=== PATIENT | female | born 1990 | race Two or more races ===

== ENCOUNTER 2017-06-27 08:44 | Outpatient (CLI) | payer OTHER | END 2017-06-27 15:13 | disposition home or self-care (01) | LOC: MRI 08:44 | DX: M54.5 Low back pain (principal); M25.551 Pain in right hip; M79.604 Pain in right leg | CPT/HCPCS: 72148; 73721 ==

== ENCOUNTER → 2020-06-01 17:22 | Outpatient (CLI) | payer OTHER | END | disposition home or self-care (01) | LOC: RAD 17:22 → LAB 17:22 | PROVIDERS: ATTEND Radiology Diagnostic Radiology | DX: M25.532 Pain in left wrist (principal) ==

== ENCOUNTER 2020-08-03 09:44 | Outpatient (CLI) | payer OTHER | END 2020-08-03 13:26 | disposition home or self-care (01) | LOC: OFIC 805 09:44 | PROVIDERS: ATTEND Otolaryngology | DX: J34.89 Other specified disorders of nose and nasal sinuses (principal); J34.2 Deviated nasal septum ==

== ENCOUNTER 2021-08-10 06:13 | Outpatient (CLI) | payer OTHER | END 2021-08-10 06:35 | disposition home or self-care (01) | LOC: MRI 06:13 | PROVIDERS: ATTEND Radiology Diagnostic Radiology | DX: M76.52 Patellar tendinitis, left knee (principal) | CPT/HCPCS: 73721 ==

== ENCOUNTER 2022-06-16 15:17 | Inpatient (IN) | payer OTHER ==
[~2022-06-16] VITALS: Ht 165.1 cm; Wt 77.1 kg
[2022-06-16] MEDS ORDERED: QUETIAPINE FUM400 MG PO (15:32)
[2022-06-16] MEDS ORDERED: LITHIUM CARBON300 M2 PO (15:32)
[2022-06-16] MEDS ORDERED: NASAL MIST126 ML (15:33)
[2022-06-16] MEDS ORDERED: SEROQUEL25 MG (15:33)
--- NOTE | 2022-06-16 15:34 | NUR ---
SE RECEIB PTE ALERTA Y ORIENTADA X3 CUAL REFEIR MALESTAR GENERAL DESDE Jewell. se kelsey sv y se ubivca.
--- NOTE | 2022-06-16 16:05 | NUR ---
SE LE ORIENTA A PACIENTE SOBRE LAS ORDENES MEDICAS, REFIERE ENTEDER LAS MISMAS. SE CANALIZA Y SE LE COLOCA LOS IVF'S, SE LE ANDREIA LAS MUETRAS Y SE LE ADMINSITRAN LOS MEDICAMENTOS [place] LAS ORDENES MEDICAS.
[2022-06-19] MEDS ORDERED: LAMICTAL200 MG (08:17)
[2022-06-20] MEDS ORDERED: QUETIAPINE FUMA50 MG (15:57)
[2022-06-20] MEDS ORDERED: QUETIAPINE FUM100 MG (15:58)
== END 2022-06-22 13:48 | disposition home or self-care (01) | DRG 194 ==
LOC: ER 15:17 → SURG 21:13
PROVIDERS: ADMIT Specialist; ATTEND Specialist
PROC: 8E0ZXY6 Isolation (ICD-10-PCS; principal; 2022-06-16)
PROC: 3E0F7GC Introduction of Other Therapeutic Substance into Respiratory Tract, Via Natural or Artificial Opening (ICD-10-PCS; 2022-06-16)
PROC: BW24Y0Z Computerized Tomography (CT Scan) of Chest and Abdomen using Other Contrast, Unenhanced and Enhanced (ICD-10-PCS; 2022-06-16)
DX: J18.1 Lobar pneumonia, unspecified organism (principal); F31.89 Other bipolar disorder; E86.0 Dehydration; E87.6 Hypokalemia; D64.9 Anemia, unspecified; Z20.822 Contact with and (suspected) exposure to COVID-19

== ENCOUNTER 2023-12-21 07:07 | Day surgery (SDC) | payer OTHER ==
[2023-12-14 09:52] LABS: URINE APPEARANCE Turbid; URINE BILIRRUBIN Negative (NEGATIVE); URINE BLOOD Trace; URINE COLOR Yellow; URINE GLUCOSE Negative (NEGATIVE); URINE KETONE Negative (NEGATIVE); URINE LEUKOCYTE Negative; URINE NITRATE Negative; URINE PROTEIN Negative (NEGATIVE); URINE UROBILINOGEN 0.2 E.U./dl
[2023-12-14 09:55] LABS: URINE BACTERIA 840.3 uL (0.0-1933); URINE EPITHELIAL CELLS 6.7 uL (0.0-38.8); URINE RBC 43.8 uL (0.0-20.8); URINE WBC 10.6 uL (0.0-23.2)
[2023-12-14 10:01] LABS: HEMATOCRIT 38.4 % (36.0-45.00); HEMOGLOBIN 13.4 g/dL (12.0-15.00); MEAN CELL VOLUME 92.7 fL (80.00-100.00); MEAN CORPUSCULAR HEMOGLOBIN 32.5 pg (27.00-32.0); PLATELET COUNT 309 K/uL (150-450); RED BLOOD COUNT 4.14 M/uL (4.00-6.00); RED CELL DISTRIBUTION WIDTH 12.7 % (11.5-14.5)
[2023-12-14 10:33] LABS: PARTIAL THROMBOPLASTIN TIME 29.9 SECONDS (22.0-34.0); PROTHROMBIN TIME 10.5 SECONDS (9.0-11.5)
[2023-12-14 10:38] LABS: ALBUMIN 4.2 gm/dL (3.4-5.0); CREATININE SERUM 0.6 mg/dL (0.55-1.02); GFR 113.76; PHOSPHOROUS 3.3 mg/dL (2.5-4.9); POTASSIUM 4.28 mEq/L (3.5-5.1)
[~2023-12-21] VITALS: Ht 167.6 cm; Wt 81.6 kg
[~2023-12-21 07:07] MED LIST: LAMICTAL200 MG; LITHIUM CARBON300 M2 PO; NASAL MIST126 ML; QUETIAPINE FUM100 MG PO; QUETIAPINE FUM400 MG PO; QUETIAPINE FUMA50 MG; SEROQUEL25 MG
[2023-12-21] MEDS ORDERED: CEFAZOLIN SODIUM 1,000 MG VIAL ONE (09:06)
[2023-12-21] MEDS ORDERED: EPINEPHRINE HCL/PF 1 MG/ML AMPUL ONE (09:27)
[2023-12-21] MEDS ORDERED: LIDOCAINE HCL 1%/EPINEPHRINE 20ML VIAL IJ ONE ×2 (09:27→10:30)
[2023-12-21] MEDS ORDERED: DEXAMETHASONE SODIUM PHOSPHATE 4 MG/ML VIAL ONE (09:27)
[2023-12-21] MEDS ORDERED: POVIDONE-IODINE 118 ML BOTT TOP ONE (09:27)
[2023-12-21] MEDS ORDERED: CEFAZOLIN SODIUM 1,000 MG VIAL IV SCH (10:30)
[2023-12-21] MEDS ORDERED: DEXAMETHASONE 4 MG TABLET PO ONE (10:30)
[2023-12-21] MEDS ORDERED: OXYMETAZOLINE HCL 15 ML NASAL DROPS NASAL ONE (10:30)
[2023-12-21] MEDS ORDERED: SUGAMMADEX SODIUM 200 MG/2 ML VIAL IV ONE ×2 (10:36→11:45)
[2023-12-21] MEDS ORDERED: CEPHALEXIN500 MG PO (11:20)
== END 2023-12-21 13:10 | disposition home or self-care (01) ==
LOC: CIR.AMB 07:07
PROVIDERS: ATTEND Otolaryngology Otology & Neurotology
DX: J34.2 Deviated nasal septum (principal); J34.3 Hypertrophy of nasal turbinates